=== PATIENT | female | born 1945 | race Caucasian/White ===

== ENCOUNTER → 2016-12-04 | Outpatient (CLI) | payer OTHER ==
[~2016-12-04] VITALS: Ht 152.4 cm; Wt 71.7 kg
[~2016-12-04] MED LIST: ALDACTONE100 MG PO; BENADRYL25 MG PO; COZAAR 50 MG TA50 M2 PO; FLONASE 0.05%50 MCG NASAL; HYDROCODONE-AP1 EAC6 PO; HYDROXYZINE HCL25 M1 PO; KRISTALOSE10 GM PO; LANTUS100 UNIT/M SQ; LASIX 40 MG TAB40 M2 PO; PRIMIDONE50 MG PO; PROAIR RESPICL90 MCG INH; REMERON15 MG PO; ROXICODONE5 M2 PO; SENOKOT-S1 TA1 PO; SERTRALINE HCL50 MG PO; VOLTAREN GEL 1100 G2 TOP; XIFAXAN550 M1 PO
[2016-12-04 09:56] VITALS: BP 115/57
== END ==
LOC: SPEC 06:50
DX: Z45.09 Encounter for adjustment and management of other cardiac device (principal); J90 Pleural effusion, not elsewhere classified